=== PATIENT | male | born 1945 | race Caucasian/White ===

== ENCOUNTER 2020-11-12 13:21 | Emergency (ER) | payer MEDICARE ==
[2020-11-12] MEDS ORDERED: Lidocaine 2% PF 5 ML VIAL ONE (13:48)
[2020-11-12] MEDS ORDERED: Boostrix 0.5 ML (Tdap) VIAL ONE (13:53)
[2020-11-12] MEDS ORDERED: CEFAZOLIN 1 GM VIAL ONE (14:22)
[2020-11-12] MEDS ORDERED: Water For Injection,Sterile 20 ML ONE (14:25)
--- NOTE | 2020-11-12 17:29 | RAD ---
LEFT HAND THREE VIEWS: 11/12/20 Swelling is seen on the dorsum of the hand over the knuckles. There is bony irregularity involving th e second and third metacarpal heads that I presume is due to this recent trauma. This appears to be m ainly cortical injury with no through and through displaced fracture evident at the moment. Degenerat du changes are seen in the IP joints of the fingers and the first carpometacarpal joint. The latter is fairly severe. No acute carpal abnormalities were seen. IMPRESSION: Presumed cortical injury to the second and third metacarpal heads. POS: HOME
== END 2020-11-12 15:47 | disposition short-term general hospital (02) ==
LOC: BURERS 13:21
DX: S66.922A Laceration of unspecified muscle, fascia and tendon at wrist and hand level, left hand, initial encounter (principal); E78.5 Hyperlipidemia, unspecified; I10 Essential (primary) hypertension; Z79.899 Other long term (current) drug therapy; Z79.82 Long term (current) use of aspirin; W45.8XXA Other foreign body or object entering through skin, initial encounter
CPT/HCPCS: 64450; 90471; 90715; 96372; J0690; J2001